=== PATIENT | male | born 2000 | race African-American/Black ===

== ENCOUNTER 2019-03-20 16:23 | Emergency (ER) | payer SELFPAY ==
[~2019-03-20] VITALS: Ht 180.3 cm; Wt 77.0 kg
[2019-03-20] MEDS ORDERED: DIAZEPAM 5 MG TABLET PO ONE (16:45)
[2019-03-20] MEDS ORDERED: KETOROLAC 60MG/2ML VIAL IM ONE (16:45)
[2019-03-20 17:11] VITALS: BP 140/88
== END 2019-03-20 18:48 | disposition home or self-care (01) ==
LOC: ER 16:23
DX: S13.4XXA Sprain of ligaments of cervical spine, initial encounter (principal); V49.49XA Driver injured in collision with other motor vehicles in traffic accident, initial encounter; Y93.89 Activity, other specified; Y92.410 Unspecified street and highway as the place of occurrence of the external cause
CPT/HCPCS: 96372; 99283; J1885